=== PATIENT | female | born 1955 | race Caucasian/White ===

== ENCOUNTER 2017-11-22 09:51 | Emergency (ER) | payer OTHER ==
--- NOTE | 2017-11-22 10:19 | UC ---
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 She tells me that she was cutting bread and the knife slipped. Applied pressure , but had trouble getting the bleeding to stop. Came to Urgent care. Unsure date of last tetanus - History Of Current Complaint Stated Complaint: FINGER LACERATION Time Seen by Provider: 11/22/17 10:19 Hx Obtained From: Patient Laceration Location: Finger Mechanism Of Injury: Sharp Trauma Onset/Duration: Sudden Onset Severity: Mild Pain Intensity: 1 Pain Scale Used: 0-10 Numeric - Allergies/Home Medications Allergies/Adverse Reactions: Allergies Allergy/AdvReac Type Severity Reaction Status Date / Time Sulfa (Sulfonamide AdvReac Nausea And Verified 11/22/17 10:35 Antibiotics) Vomiting Home Medications: Home Medications NK [No Home Medications Reported] 11/22/17 [History Confirmed 11/22/17] PMH/Surg Hx/FS Hx/Imm Hx - Additional Past Medical History 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 - Surgical History Surgical History: Yes Surgery Procedure, Year, and Place: wisdom teeth, nasal surgery, tonsillectomy - Family History Known Family History: Positive: None - Social History Occupation: Employed Full-time Lives: With Family Alcohol Use: Occasionally Substance Use Type: None Smoking Status (MU): Never Smoked Tobacco Review of Systems Constitutional: Negative Skin: Other - Laceration left thumb Respiratory: Negative Cardiovascular: Negative Neurovascular: Negative Musculoskeletal: Negative Neurological: Negative Psychological: Negative All Other Systems Reviewed And Are Negative: Yes Physical Exam - Summary Physical Exam Summary: GENERAL: NAD. WDWN. No pain distress. SKIN: Left thumb: 0.5cm superficial linear laceration to the ulnar aspect of the dorsal thumb. Laceration is abutting the nail horizontally. Scant active bleeding. No FB, exposed subcutaneous tissue, or nail lac. NECK: Supple. Nontender. No lymphadenopathy. CHEST: No accessory muscle use. Breathing comfortably and in no distress. CV: Pulses intact NEURO: Alert. CN II-XII grossly intact. PSYCH: Age appropriate behavior. Triage Information Reviewed: Yes Vital Signs: Vital Signs: Temp Pulse Resp BP Pulse Ox 97.5 F 58 18 160/87 99 11/22/17 10:36 11/22/17 10:36 11/22/17 10:36 11/22/17 10:36 11/22/17 10:36 Laceration Repair - Laceration Repair 1 Description: Linear Laceration Size After Repair: Length (cm) - 0.5 Modified For Repair: No Cleansing Completed Via Routine Prep: Yes Closure Material: Skin Adhesive Laceration Course/Dx - Course/Dx Course Of Treatment: tdap updated today. Laceration well approximated at rest - close with dermabond. Bandaged with band-aid. - Differential Dx - Laceration/Wound Provider Diagnoses: left thumb laceration Discharge - Sign-Out/Discharge Documenting (check all that apply): Discharge/Admit/Transfer - Discharge Plan Condition: Stable Disposition: HOME Patient Education Materials: Skin Adhesive Care (ED) Referrals: Pop Ham MD [Primary Care Provider] - Additional Instructions: If you develop a fever, shortness of breath, chest pain, new or worsening symptoms - please call your PCP or go to the ED. 1) Please keep the area covered with a band-aid until well healed - Billing Disposition and Condition Condition: STABLE Disposition: Home
[2017-11-22] MEDS ORDERED: Tetan/Diph/Pertus SYR(Tdap)* 0.5 ML SYR(BOOSTRIX) use SYR IM ONE (10:25)
[2017-11-22 10:42] VITALS: BP 160/87
== END 2017-11-22 11:05 | disposition home or self-care (01) ==
LOC: UCEAST 09:51
DX: S61.012A Laceration without foreign body of left thumb without damage to nail, initial encounter (principal); W26.0XXA Contact with knife, initial encounter; Y93.G1 Activity, food preparation and clean up; Y92.9 Unspecified place or not applicable; Z23 Encounter for immunization; E53.9 Vitamin B deficiency, unspecified; E55.9 Vitamin D deficiency, unspecified; Z88.2 Allergy status to sulfonamides
CPT/HCPCS: 12001; 90471; 90715; 99201; G0463